=== PATIENT | female | born 1930 | race Caucasian/White ===

== ENCOUNTER → 2017-05-02 | Outpatient (CLI) | payer OTHER, MEDICARE | LOC: CIMAGING 10:48 | DX: Z12.31 Encounter for screening mammogram for malignant neoplasm of breast (principal); Z85.3 Personal history of malignant neoplasm of breast | CPT/HCPCS: G0202 ==

== ENCOUNTER → 2017-05-20 | Outpatient (CLI) | payer OTHER, MEDICARE | LOC: CIMAGING 13:15 | PROVIDERS: ATTEND Internal Medicine Hematology & Oncology | DX: Z12.39 Encounter for other screening for malignant neoplasm of breast (principal); R92.8 Other abnormal and inconclusive findings on diagnostic imaging of breast | CPT/HCPCS: G0206 ==

== ENCOUNTER → 2017-10-14 | Outpatient (CLI) | payer OTHER, MEDICARE | LOC: BHCLAF 14:45 | PROVIDERS: ATTEND Internal Medicine Cardiovascular Disease | DX: I10 Essential (primary) hypertension (principal); I35.9 Nonrheumatic aortic valve disorder, unspecified | CPT/HCPCS: 93306-PO ==

== ENCOUNTER → 2018-07-10 | Outpatient (CLI) | payer OTHER, MEDICARE | LOC: BHFA 14:00 | PROVIDERS: ATTEND Internal Medicine Cardiovascular Disease | DX: I35.0 Nonrheumatic aortic (valve) stenosis (principal); I10 Essential (primary) hypertension ==

== ENCOUNTER 2018-11-30 07:21 | Emergency (ER) | payer OTHER, MEDICARE ==
[2018-11-30] MEDS ORDERED: ACETAMINOPHEN 500 MG TAB PO ONE (08:02)
--- NOTE | 2018-11-30 08:31 | EDPHY ---
H & P Stated Complaint: low back pain severe for a week Time Seen by Provider: 11/30/18 07:27 HPI/ROS: Chief Complaint: Back pain HPI: 88-year-old woman has been having back pain for the last 6 days. Patient states that 7 days ago she had acute onset of nausea and vomiting which lasted for 24 hr. It was quite severe. Following day the nausea vomiting resolved but she developed low back pain, worse on the left. She says she has a history of sciatica on that side in the past and this is similar. She says she is fine and she lays still but is severe when she tries to walk around. She also has difficulty trying to lower herself onto the toilet. She lives independently with her in a private home. He has a history of a fall 2 years ago and requires a walker to get around. He also has some dementia. She is his primary care provider at home. ROS: 10 systems were reviewed and were negative except those elements noted in the HPI. PMH: Hypertension, glaucoma, sciatic back pain Social History: No smoking, no alcohol, no recreational drug use Family History: non-contributory Physical Exam: Gen: Awake, Alert, No Distress HEENT: Nose: no rhinorrhea Eyes: PERRLA, EOMI Mouth: Moist mucosa Neck: Supple, no JVD Chest: nontender, lungs clear to auscultation Heart: S1, S2 normal, no murmur Abd: Soft, non-tender, no guarding Back: no CVA tenderness, no midline tenderness, mild left paraspinal in SI joint tenderness Ext: no edema, non-tender Skin: no rash Neuro: CN II-XII intact, Sensation grossly intact, Strength 5/5 in bilateral upper and lower extremities, she has 2+ patellar reflexes. 5/5 plantar and dorsiflexion, toes are downgoing. - Personal History Current Tetanus/Diphtheria Vaccine: Unsure Current Tetanus Diphtheria and Acellular Pertussis (TDAP): Unsure - Medical/Surgical History Other PMH: HTN. Tubal surgery. Breast cancer Lumpectomy. glaucoma. Hypothyroid - Social History Smoking Status: Former smoker Constitutional: Initial Vital Signs Temperature (C) 36.6 C 11/30/18 07:51 Heart Rate 73 11/30/18 07:51 Respiratory Rate 16 11/30/18 07:51 Blood Pressure 159/77 H 01/31/19 07:51 O2 Sat (%) 97 11/30/18 07:51 O2 Delivery Mode Room Air Allergies/Adverse Reactions: No Known Allergies Allergy (Verified 11/30/18 07:43) Home Medications: Medication Instructions Recorded Aspirin 81mg (*) 11/30/18 BIOTIN 11/30/18 Calcium 11/30/18 Fish Oil 1000 mg (*) 11/30/18 Glucosamine 11/30/18 Levothyroxine 11/30/18 Lisinopril 11/30/18 Multivitamin 11/30/18 Red Yeast Rice 11/30/18 Systane Ultra 0.4-0.3% Eye Drp 11/30/18 Timolol Maleate 11/30/18 Zioptan 0.0015% Eye Drops 11/30/18 Medical Decision Making - Diagnostics Imaging Results: Imaging Impressions Lumbar Spine X-Ray 11/30/18 07:47 Impression: 1. Moderate to severe compression fracture at L4, age indeterminate, possibly acute. 2. Multilevel degenerative change and spondylolistheses. ED Course/Re-evaluation: 8-year-old with acute exacerbation of back pain crease she is completely neurologically intact. Will 10 x-rays, oral analgesia and reassess. Situation complicated by she is a caregiver for her . He did drive her here today. X-rays reveal L4 compression fracture, age indeterminate but could be acute. Patient states she has never had a lumbar x-ray or diagnosis of fracture in the past. Pain is still severe and she is unable to ambulate without assistance. Patient will require admission. There are no beds available at [facility]. Plan will be to transfer to [facility] for continued care. We are contacting the 's medical power of trademark attorney to try to find assistance for him while she is in hospital. Patient has been accepted to [facility] as there are no beds available at [facility] by Dr. Smart, I have completed the EMTALA. - Data Points Medications Given: Discontinued Medications Acetaminophen (Tylenol) 1,000 mg PO EDNOW ONE Stop: 11/30/18 08:03 Last Admin: 11/30/18 08:05 Dose: 1,000 mg Point of Care Test Results: Urine Dip Collection Date 11/30/18 Collection Time 10:10 Specific [place] (1.002-1.030) 1.015 PH (5.0-7.5) 7.0 Leukocytes (Negative) Negative Nitrites (Negative) Negative Protein (Negative) Negative Glucose (Negative) Negative Ketones (Negative) Negative Urobilnogen (0.2-1.0 EU) 0.2 Bilirubin (Negative) Negative Blood (Negative) Trace Departure - Departure Disposition: [facility] Clinical Impression: Lumbar compression fracture Condition: Fair Referrals: Darlene Jean MD [Primary Care Provider] - As per Instructions
[2018-11-30] MEDS ORDERED: IBUPROFEN 600 MG TAB PO ONE (10:06)
[2018-11-30] MEDS ORDERED: fentaNYL 100 MCG/2 ML INJ ONE (11:37)
[2018-11-30] MEDS ORDERED: fentaNYL 100 MCG/2 ML INJ IVP ONE (11:37)
[2018-11-30 12:49] VITALS: BP 152/95
== END 2018-11-30 12:00 | disposition short-term general hospital (02) ==
LOC: CED 07:21
DX: M48.56XA Collapsed vertebra, not elsewhere classified, lumbar region, initial encounter for fracture (principal)
CPT/HCPCS: 72100; 96374; 99285; J3010

== ENCOUNTER → 2019-01-15 | Outpatient (CLI) | payer OTHER, MEDICARE | LOC: BHFA 14:00 | PROVIDERS: ATTEND Internal Medicine Cardiovascular Disease | DX: I35.0 Nonrheumatic aortic (valve) stenosis (principal) ==